=== PATIENT | male | born 1985 | race American Indian/Alaskan Native ===

== ENCOUNTER 2019-05-06 11:35 | Emergency (ER) | payer SELFPAY ==
[2019-05-06] MEDS ORDERED: SODIUM CHLORIDE 0.9% 1000 ML 1,000 ML IV ONE ×2 (11:53→14:03)
--- NOTE | 2019-05-06 11:53 | Event Note ---
ED Screening Note ED Screening Note: N/V/D 2 DAYS LAST TIME URINATED THIS AM PMH NONE RX NONE PSH APPY NO ONE ELSE IN HOME ILL [id number] This initial assessment/diagnostic orders/clinical plan/treatment(s) is/are subject to change based on patients health status, clinical progression and re- assessment by fellow clinical providers in the ED. Further treatment and workup at subsequent clinical providers discretion. Patient/guardian urged not to elope from the ED as their condition may be serious if not clinically assessed and managed. Initial orders include: LABS FLUIDS
[2019-05-06 13:23] LABS: Hematocrit 55.8 % (35.5-45.6); Hemoglobin 18.7 gm/dl (11.8-15.2); Mean Corpuscular HGB Conc 34 % (32-34); Mean Corpuscular Volume 90 fl (84-94); Platelet Count 432 K/mm3 (140-440); Red Blood Count 6.23 M/mm3 (3.65-5.03); Red Cell Distribution Width 14.7 % (13.2-15.2)
[2019-05-06] MEDS ORDERED: MORPHINE 4 MG/1 ML INJ IV ONE (13:23)
[2019-05-06] MEDS ORDERED: ONDANSETRON 4 MG/2 ML INJ IV ONE (13:23)
[2019-05-06] MEDS ORDERED: MORPHINE 4 MG/1 ML INJ ONE (13:25)
[2019-05-06 13:47] LABS: Alanine Aminotransferase 10 units/L (7-56); Albumin 4.5 g/dL (3.9-5); BUN/Creatinine Ratio 9; Blood Urea Nitrogen 17 mg/dL (9-20); Calcium 9.7 mg/dL (8.4-10.2); Hemolysis Index 11
[2019-05-06 13:59] LABS: Bilirubin,Direct < 0.2 mg/dL (0-0.2)
[2019-05-06 14:00] VITALS: BP 100/71
[2019-05-06 14:15] LABS: Band Neutrophils # (Manual) 4.4 K/mm3; Basophils % (Manual) 0 % (0.0-1.8); Ovalocytes Few; Total Cells Counted 100
[2019-05-06 14:16] LABS: Burr Cells Few; Platelet Estimate Consistent w Auto; Poikilocytosis Few
--- NOTE | 2019-05-06 14:22 | Emergency Department Report ---
ED Abdominal Pain HPI - General Chief Complaint: Abdominal Pain Stated Complaint: VOMITING/DIARRHEA Time Seen by Provider: 05/06/19 11:52 Source: patient Mode of arrival: Ambulatory Limitations: No Limitations - History of Present Illness Initial Comments: This is a 33-year-old male nontoxic, well nourished in appearance, no acute signs of distress presents to the ED with c/o of nausea and vomiting and abdominal pain 1 day. Patient describes vomiting as food content and yellow gastric acid. Patient describes abdominal pain as cramping and aching with level of 8/10 diffuse. Patient denies chest pain, short of breath, fever, chills, headache, stiff neck, numbness or tingling. Patient denies any diarrhea or constipation. Patient denies any recent travels. Patient denies any allergies. MD Complaint: abdominal pain -: days(s) (1) Location: diffuse Radiation: none Migration to: no migration Severity: mild Severity scale (0 -10): 8 Quality: cramping, aching Consistency: constant Improves With: nothing Worsens With: nothing Associated Symptoms: nausea, vomiting. denies: diarrhea, fever, chills, constipation, dysuria, hematemesis, hematochezia, melena, hematuria, anorexia, syncope - Related Data Previous Rx's Medication Instructions Recorded Last Taken Type Dicyclomine [Bentyl] 20 mg PO QID #10 tablet 01/17/19 Unknown Rx Ondansetron [Zofran Odt] 4 mg PO Q8HR #10 tab.rapdis 01/17/19 Unknown Rx Pantoprazole [Protonix] 40 mg PO QDAY #30 tablet 01/17/19 Unknown Rx traMADoL [Ultram] 50 mg PO Q6HR PRN #12 tablet 01/17/19 Unknown Rx Acetaminophen/Codeine [Tylenol 1 tab PO Q6H PRN #12 tab 05/06/19 Unknown Rx /Codeine # 3 tab] Ondansetron [Zofran Odt] 4 mg PO Q8HR PRN #20 tab.rapdis 05/06/19 Unknown Rx Allergies Allergy/AdvReac Type Severity Reaction Status Date / Time No Known Allergies Allergy Unverified 10/11/16 21:20 ED Review of Systems ROS: Stated complaint: VOMITING/DIARRHEA Other details as noted in HPI Constitutional: denies: chills, fever Eyes: denies: eye pain, eye discharge, vision change ENT: denies: ear pain, throat pain Respiratory: denies: cough, shortness of breath, wheezing Cardiovascular: denies: chest pain, palpitations Endocrine: no symptoms reported Gastrointestinal: abdominal pain, nausea, vomiting. denies: diarrhea Genitourinary: denies: urgency, dysuria Musculoskeletal: denies: back pain, joint swelling, arthralgia Skin: denies: rash, lesions Neurological: denies: headache, weakness, paresthesias Psychiatric: denies: anxiety, depression Hematological/Lymphatic: denies: easy bleeding, easy bruising ED Past Medical Hx - Past Medical History Hx Hypertension: No Hx Congestive Heart Failure: No Hx Diabetes: No Hx GERD: Yes Hx Renal Disease: No Hx Seizures: No Hx Asthma: No Hx COPD: No - Surgical History Hx Appendectomy: Yes - Social History Smoking Status: Never Smoker Substance Use Type: None - Medications Home Medications: Home Medications Medication Instructions Recorded Confirmed Last Taken Type Dicyclomine [Bentyl] 20 mg PO QID #10 tablet 01/17/19 Unknown Rx Ondansetron [Zofran Odt] 4 mg PO Q8HR #10 tab.rapdis 01/17/19 Unknown Rx Pantoprazole [Protonix] 40 mg PO QDAY #30 tablet 01/17/19 Unknown Rx traMADoL [Ultram] 50 mg PO Q6HR PRN #12 tablet 01/17/19 Unknown Rx Acetaminophen/Codeine [Tylenol 1 tab PO Q6H PRN #12 tab 05/06/19 Unknown Rx /Codeine # 3 tab] Ondansetron [Zofran Odt] 4 mg PO Q8HR PRN #20 tab.rapdis 05/06/19 Unknown Rx ED Physical Exam - General Limitations: No Limitations General appearance: alert, in no apparent distress - Head Head exam: Present: atraumatic, normocephalic - Neck Neck exam: Present: normal inspection, full ROM. Absent: tenderness, meningismus, lymphadenopathy - Respiratory Respiratory exam: Present: normal lung sounds bilaterally. Absent: respiratory distress, wheezes, rales, rhonchi, stridor, chest wall tenderness, accessory muscle use, decreased breath sounds, prolonged expiratory - Cardiovascular Cardiovascular Exam: Present: regular rate, normal rhythm, tachycardia, normal heart sounds. Absent: irregular rhythm, systolic murmur, diastolic murmur, rubs, gallop - GI/Abdominal GI/Abdominal exam: Present: soft, tenderness (diffuse), normal bowel sounds. Absent: distended, guarding, rebound, rigid, diminished bowel sounds - Extremities Exam Extremities exam: Present: normal inspection, full ROM - Back Exam Back exam: Present: normal inspection, full ROM. Absent: tenderness, CVA tenderness (R), CVA tenderness (L), muscle spasm, paraspinal tenderness, vertebral tenderness, rash noted - Neurological Exam Neurological exam: Present: alert, oriented X3, normal gait - Psychiatric Psychiatric exam: Present: normal affect, normal mood - Skin Skin exam: Present: warm, dry, intact, normal color. Absent: rash ED Course Vital Signs 05/06/19 05/06/19 05/06/19 11:42 11:52 13:59 Temperature 98.4 F 98.6 F 99.0 F Pulse Rate 141 H 130 H 99 H Respiratory 19 19 18 Rate Blood Pressure 108/68 108/68 Blood Pressure 100/71 [Left] O2 Sat by Pulse 94 96 98 Oximetry - Reevaluation(s) Reevaluation #1: 05/06/19 14:21 Patient is speaking in full sentences with no signs of distress noted. ED Medical Decision Making - Lab Data Result diagrams: 05/06/19 12:39 05/06/19 12:39 - Medical Decision Making This is a 33-year-old male that presents with abdominal pain and n/v. Patient is stable and was examined by me. Labs obtained. UA obtained. CT of abdomen obtained and dictated by the radiologist. Patient is notified of the report with no questions noted by the patient. Vital signs are stable prior to discharge. Patient received medical treatment in the ED which patient stated symptoms has resovled and subsided. Was instructed note to operate any machinery due to possible drowsiness and stated someone will drive the patient home. A by mouth c hallenge has been obtained and patient tolerated well with no nausea vomiting. Patient was also instructed to Follow-up with a primary care doctor in 3-5 days or if symptoms worsen and continue return to emergency room as soon as possible. At time of discharge, the patient does not seem toxic or ill in appearance. No acute signs of distress noted. Patient agrees to discharge treatment plan of care. No further questions noted by the patient. Critical care attestation.: If time is entered above; I have spent that time in minutes in the direct care of this critically ill patient, excluding procedure time. ED Disposition Clinical Impression: Abdominal pain Qualifiers: Abdominal location: generalized Qualified Code(s): R10.84 - Generalized abdominal pain Nausea & vomiting Qualifiers: Vomiting type: unspecified Vomiting Intractability: non-intractable Qualified Code(s): R11.2 - Nausea with vomiting, unspecified Disposition: DC- TO HOME OR SELFCARE Is pt being admited?: No Does the pt Need Aspirin: No Condition: Stable Instructions: Acute Abdominal Pain (ED), Acute Nausea and Vomiting (ED), Acetaminophen/Codeine (By mouth) Additional Instructions: Follow-up with a primary care and risk compliance analyst doctor in 3-5 days or if symptoms worsen and continue return to emergency room as soon as possible. Do not operate any machinery while taking Tylenol with codeine as this may cause drowsiness. Prescriptions: Acetaminophen/Codeine [Tylenol /Codeine # 3 tab] 1 tab PO Q6H PRN #12 tab PRN Reason: Pain , Severe (7-10) Ondansetron [Zofran Odt] 4 mg PO Q8HR PRN #20 tab.rapdis PRN Reason: Nausea Referrals: PRIMARY CAREMD [Primary Care Provider] - 3-5 Days MICKIE CARRILLO MD [Staff Physician] - 3-[address] [facility] [Outside] - 3-5 Days [facility] [Provider Group] - 3-5 Days Forms: Work/School Release Form(ED)
[2019-05-06 14:35] LABS: Bacteria,Urine 1+ /HPF (Negative); Bilirubin,Urine MOD (Negative); Blood,Urine NEG (Negative); Color,Urine Amber (Yellow); Hyaline Casts,Urine 42 /LPF; Mucus,Urine 3+ /HPF; Urobilinogen,Urine < 2.0 mg/dL (<2.0)
[2019-05-06 14:58] LABS: Ictotest,Urine Negative (Negative)
--- NOTE | 2019-05-06 15:05 | Cat Scan Report ---
CT ABDOMEN AND PELVIS WITH CONTRAST HISTORY: abd pain with n/v COMPARISON: 01/17/2019 TECHNIQUE: Axial CT images were obtained through the abdomen and pelvis after 100 cc of Omnipaque 300 intravenously. Sagittal and coronal reformatted images. All CT scans at this location are performed using CT dose reduction for ALARA by means of automated exposure control. FINDINGS: CT ABDOMEN: Lung Bases: Clear. Liver: No significant abnormality. Biliary: No significant abnormality. Spleen: No significant abnormality. Unenlarged. Pancreas: No significant abnormality. Adrenals: No significant abnormality. Kidneys: No significant abnormality. Lymphatics: No lymphadenopathy. Vasculature: No significant abnormality. Bowel/Peritoneum: Mild irregular thickening of the gastric antrum is again seen although inflammatory changes along the greater curvature of the stomach have resolved. There is no evidence for obstructi on, free air or abscess. The remaining bowel loops are unremarkable. Normal appendix. CT PELVIS: : No significant abnormality. Osseous Structures: No significant abnormality. Additional Findings: None IMPRESSION: Antral gastritis is suspected. See above. Consider further evaluation with endoscopy. Signer Name: Eleazar Ramos Jr, MD Signed: 05/06/2019 3:00 PM Workstation Name: [id number]
== END 2019-05-06 16:30 | disposition home or self-care (01) ==
LOC: ED 11:35
DX: R11.2 Nausea with vomiting, unspecified (principal); R10.9 Unspecified abdominal pain; K21.9 Gastro-esophageal reflux disease without esophagitis; Z79.899 Other long term (current) drug therapy
CPT/HCPCS: 36415; 74177; 80048; 80076; 81001; 83690; 85007; 85025; 87086; 96361; 96374; 96375; 99284; J2270; J2405; J7030; Q9967

== ENCOUNTER 2019-06-09 23:36 | Emergency (ER) | payer SELFPAY ==
[2019-06-09 23:45] VITALS: BP 126/83
--- NOTE | 2019-06-10 01:51 | Emergency Department Report ---
Chief Complaint: Dental/Oral Stated Complaint: TOOTHACHE/ABD PAIN Time Seen by Provider: 06/10/19 01:30 - HPI History of Present Illness: Patient is a 33-year-old male presents the emergency room with complaints of dental pain that began 2 days ago. He states he has upper and lower dental pain. He states he has it has been years since he has seen a dentist. He denies any nausea, vomiting, diarrhea, fever, difficulty swallowing, facial swelling, any other symptoms. Patient does not report anything about abdominal pain. He denies any past medical history. He denies any allergies to medications. He has not been taking anything for his dental pain. vitals are normal on exam: non toxic appearing, no acute distress atraumatic, normal cephalic normal appearance of eyes, EOMI cracked tooth present on the left lower jaw, cracked tooth with small reminant o n the right lower jaw, no induration or edema of the gum or jaw line, no facial edema, uvula is midline, no uvular edema, no uvular deviation regular heart rate and rhythm, no murmurs, no gallops or rubs breath sounds are clear bilaterally, no w/r/r no abd TTP, no guarding, no rebound, no peritoneal signs, normal bowel sounds, no mcburneys point ttp or murphys sign A&Ox4 skin is warm, dry intact pt is presenting with dental caries/cracked teeth no signs of abscess or facial cellulitis Medical screening examination performed and there is no threat to life or limb at this time Patient will be referred to a dentist for further evaluation and management Discussed strict return precautions with the patient - Exam Vital Signs: Vital Signs 06/09/19 23:41 Temperature 98.5 F Pulse Rate 80 Respiratory 18 Rate Blood Pressure 126/83 O2 Sat by Pulse 98 Oximetry MSE screening note: Focused history and physical exam performed. ED Disposition for MSE Clinical Impression: Dental caries, Cracked tooth, Pain, dental Disposition: Z-07 MED SCREENING EXAM-LEFT Is pt being admited?: No Does the pt Need Aspirin: No Condition: Stable Instructions: Dental Caries (ED) Additional Instructions: May alternate Tylenol and then ibuprofen every 6 hours as needed for dental pain. May use a dental putty [id number]. Follow-up with a dentist in the next 2 to 3 days. It is very important that you follow-up with a dentist for further evaluation and management. Return to the emergency room for any new or worsening symptoms including but not limited to fever, vomiting, unable to swallow, facial swelling, etc. Referrals: [facility] [Outside] - 2-3 Days Forms: Work/School Release Form(ED) Time of Disposition: 01:51 Print Language: CAMEROONIAN
== END 2019-06-10 02:14 | disposition left against medical advice (07) ==
LOC: ED 23:36
DX: K02.9 Dental caries, unspecified (principal); K03.81 Cracked tooth
CPT/HCPCS: 99281

== ENCOUNTER 2019-06-23 13:00 | Emergency (ER) | payer SELFPAY ==
[2019-06-23 14:40] VITALS: BP 121/85
--- NOTE | 2019-06-23 14:41 | Event Note ---
ED Screening Note Date of service: 06/23/19 Time: 14:39 ED Screening Note: 33 y o male presents with vomitting continuosly x yesterday stated today he notice brownish blood in his vomitting denies f/c/ admits generalized abd pain This initial assessment/diagnostic orders/clinical plan/treatment(s) is/are subject to change based on patients health status, clinical progression and re- assessment by fellow clinical providers in the ED. Further treatment and workup at subsequent clinical providers discretion. Patient/guardian urged not to elope from the ED as their condition may be serious if not clinically assessed and managed. Initial orders include: labs
[2019-06-23 15:38] LABS: Basophils # (Auto) 0.1 K/mm3 (0.0-0.1); Basophils % (Auto) 0.7 % (0.0-1.8); Eosinophils # (Auto) 0.1 K/mm3 (0.0-0.4); Eosinophils % (Auto) 0.5 % (0.0-4.3); Hematocrit 45.3 % (35.5-45.6); Hemoglobin 15.5 gm/dl (11.8-15.2); Lymphocytes # (Auto) 3.8 K/mm3 (1.2-5.4); Lymphocytes % (Auto) 23.3 % (13.4-35.0); Mean Corpuscular HGB Conc 34 % (32-34); Mean Corpuscular Volume 91 fl (84-94); Monocytes # (Auto) 1.5 K/mm3 (0.0-0.8); Monocytes % (Auto) 9.2 % (0.0-7.3); Platelet Count 401 K/mm3 (140-440); Red Blood Count 4.99 M/mm3 (3.65-5.03); Red Cell Distribution Width 13.7 % (13.2-15.2)
[2019-06-23 15:39] LABS: Alanine Aminotransferase 11 units/L (7-56); Albumin 4.4 g/dL (3.9-5); BUN/Creatinine Ratio 29; Blood Urea Nitrogen 29 mg/dL (9-20); Calcium 9.6 mg/dL (8.4-10.2); Hemolysis Index 18
[2019-06-23] MEDS ORDERED: ALUM-MAG HYDROXIDE-SIMETHICONE 200-200-20MG/5ML ORAL LIQD 30 ML PO ONE (17:16)
[2019-06-23] MEDS ORDERED: FAMOTIDINE 20 MG TAB PO ONE (17:16)
[2019-06-23] MEDS ORDERED: SODIUM CHLORIDE 0.9% 1000 ML 1,000 ML IV ONE (17:16)
[2019-06-23] MEDS ORDERED: LIDOCAINE VISCOUS 2% 15 ML ORAL LIQD PO ONE (17:17)
--- NOTE | 2019-06-23 17:17 | Emergency Department Report ---
ED Abdominal Pain HPI - General Chief Complaint: Nausea/Vomiting/Diarrhea Stated Complaint: ABD PAIN Time Seen by Provider: 06/23/19 17:16 Source: patient Mode of arrival: Ambulatory Limitations: No Limitations - History of Present Illness Initial Comments: Patient is a 36-year-old -[place] male who comes to the ER complaining of epigastric pain associated with some nausea and vomiting. He is not vomiting in the ER. He is not tachycardic nor hypotensive. He has no fever. Patient states that he has been having stomach pain off and on since he had his appendectomy many years ago. In review of the EMR he has been seen here numerous times for gastritis, GERD and has been recommended to have an EGD. However, the patient does not follow-up. Given his complaints today I am concerned for gastritis and need to rule out a perforation. I had a long discussion with the patient about his need to see the GI doctor to get an endoscopy. He verbalizes understanding. MD Complaint: abdominal pain -: Gradual, days(s) Location: epigastric Radiation: none Severity: mild Consistency: constant Improves With: nothing Worsens With: nothing Associated Symptoms: denies other symptoms, nausea, vomiting. denies: diarrhea, fever, chills, constipation, dysuria, hematemesis, hematochezia, melena, hematuria, anorexia, syncope - Related Data Previous Rx's Medication Instructions Recorded Last Taken Type Ondansetron [Zofran Odt] 4 mg PO Q8HR PRN #10 tab.rapdis 06/23/19 Unknown Rx Pantoprazole [Protonix] 40 mg PO QDAY #30 tablet 06/23/19 Unknown Rx Allergies Allergy/AdvReac Type Severity Reaction Status Date / Time No Known Allergies Allergy Unverified 10/11/16 21:20 ED Review of Systems ROS: Stated complaint: VOMITING BLOOD/ABD PAIN Other details as noted in HPI Comment: All other systems reviewed and negative ED Past Medical Hx - Past Medical History Previous Medical History?: Yes Hx Hypertension: No Hx Congestive Heart Failure: No Hx Diabetes: No Hx GERD: Yes Hx Renal Disease: No Hx Seizures: No Hx Asthma: No Hx COPD: No - Surgical History Past Surgical History?: Yes Hx Appendectomy: Yes - Family History Family history: no significant - Social History Smoking Status: Never Smoker Substance Use Type: None - Medications Home Medications: Home Medications Medication Instructions Recorded Confirmed Last Taken Type Ondansetron [Zofran Odt] 4 mg PO Q8HR PRN #10 tab.rapdis 06/23/19 Unknown Rx Pantoprazole [Protonix] 40 mg PO QDAY #30 tablet 06/23/19 Unknown Rx ED Physical Exam - General Limitations: No Limitations General appearance: alert, in no apparent distress - Head Head exam: Present: atraumatic, normocephalic - Eye Eye exam: Present: normal appearance - ENT ENT exam: Present: mucous membranes moist - Neck Neck exam: Present: normal inspection - Respiratory Respiratory exam: Present: normal lung sounds bilaterally. Absent: respiratory distress - Cardiovascular Cardiovascular Exam: Present: regular rate, normal rhythm. Absent: systolic murmur, diastolic murmur, rubs, gallop - GI/Abdominal GI/Abdominal exam: Present: soft, normal bowel sounds - Rectal Rectal exam: Present: deferred - Extremities Exam Extremities exam: Present: normal inspection - Back Exam Back exam: Present: normal inspection - Neurological Exam Neurological exam: Present: alert, oriented X3 - Psychiatric Psychiatric exam: Present: normal affect, normal mood - Skin Skin exam: Present: warm, dry, intact, normal color. Absent: rash ED Course Vital Signs 06/23/19 06/23/19 14:39 19:53 Temperature 98.5 F Pulse Rate 76 84 Respiratory 18 18 Rate Blood Pressure 121/85 O2 Sat by Pulse 100 98 Oximetry ED Medical Decision Making - Lab Data Result diagrams: 06/23/19 15:08 06/23/19 15:08 - Radiology Data Radiology results: report reviewed, image reviewed - Medical Decision Making Lab Results 06/23/19 06/23/19 06/23/19 Range/Units 15:08 15:08 Unknown WBC 16.5 H (4.5-11.0) K/mm3 RBC 4.99 (3.65-5.03) M/mm3 Hgb 15.5 H (11.8-15.2) gm/dl Hct 45.3 (35.5-45.6) % MCV 91 (84-94) fl MCH 31 (28-32) pg MCHC 34 (32-34) % RDW 13.7 (13.2-15.2) % Plt Count 401 (140-440) K/mm3 Lymph % (Auto) 23.3 (13.4-35.0) % Yancey % (Auto) 9.2 H (0.0-7.3) % Eos % (Auto) 0.5 (0.0-4.3) % Baso % (Auto) 0.7 (0.0-1.8) % Lymph # 3.8 (1.2-5.4) K/mm3 Yancey # 1.5 H (0.0-0.8) K/mm3 Eos # 0.1 (0.0-0.4) K/mm3 Baso # 0.1 (0.0-0.1) K/mm3 Seg Neutrophils % 66.3 (40.0-70.0) % Seg Neutrophils # 11.0 H (1.8-7.7) K/mm3 Sodium 137 (137-145) mmol/L Potassium 3.9 (3.6-5.0) mmol/L Chloride 93.9 L (98-107) mmol/L Carbon Dioxide 25 (22-30) mmol/L Anion Gap 22 mmol/L BUN 29 H (9-20) mg/dL Creatinine 1.0 (0.8-1.5) mg/dL Estimated GFR > 60 ml/min BUN/Creatinine Ratio 29 % Glucose 102 H (75-100) mg/dL Calcium 9.6 (8.4-10.2) mg/dL Total Bilirubin 0.60 (0.1-1.2) mg/dL AST 13 (5-40) units/L ALT 11 (7-56) units/L Alkaline Phosphatase 62 (35-129) units/L Total Protein 7.8 (6.3-8.2) g/dL Albumin 4.4 (3.9-5) g/dL Albumin/Globulin Ratio 1.3 % Lipase 15 (13-60) units/L Urine Color Yellow (Yellow) Urine Turbidity Clear (Clear) Urine pH 7.0 (5.0-7.0) Ur Specific [place] 1.029 (1.003-1.030) Urine Protein <15 mg/dl (Negative) mg/dL Urine Glucose (UA) Neg (Negative) mg/dL Urine Ketones Tr (Negative) mg/dL Urine Blood Neg (Negative) Urine Nitrite Neg (Negative) Urine Bilirubin Neg (Negative) Urine Urobilinogen 2.0 (<2.0) mg/dL Ur Leukocyte Esterase Neg (Negative) Urine WBC (Auto) 1.0 (0.0-6.0) /HPF Urine RBC (Auto) 2.0 (0.0-6.0) /HPF U Epithel Cells (Auto) < 1.0 (0-13.0) /HPF Urine Mucus 1+ /HPF Vital Signs 06/23/19 14:39 Temperature 98.5 F Pulse Rate 76 Respiratory 18 Rate Blood Pressure 121/85 O2 Sat by Pulse 100 Oximetry LABS NOTED UA NOTED EMR REVIEWED- HERE OFTEN; DOES NOT FOLLOW UP DENIES RX AT HOME NS/ZOFRAN/GI COCKTAIL AND PEPCID WITH RELIEF X-ray with no free air under the diaphragm. On reevaluation at 1830 patient is stating that his pain has been relieved. He is taking p.o. He is smiling and interactive. Will DC home with GI follow-up. Patient going home with a prescription for Protonix and good Rx coupon cards. On discharge patient's vital signs are stable. He reports feeling better. He is ambulatory nontoxic and taking p.o. - Differential Diagnosis GASTRITIS/GASTROENTERITIS/K STONE Critical care attestation.: If time is entered above; I have spent that time in minutes in the direct care of this critically ill patient, excluding procedure time. ED Disposition Clinical Impression: Gastritis Disposition: DC-01 TO HOME OR SELFCARE Is pt being admited?: No Does the pt Need Aspirin: No Condition: Stable Instructions: Gastritis (ED), Diet for Ulcers and Gastritis (ED) Additional Instructions: MEDS ORDERED TODAY FOLLOW UP WITH PCP AND GI MD REFERRAL BELOW YOU ADDITIONAL OUTPT TESTING TO DETERMINE WHY YOU ARE HAVING PAIN STAY WELL HYDRATED WITH WATER BLAND DIET BANANA RICE APPLESAUCE AND TOAST ADVANCE DIET TOLERATED SLOWLY AVOID ALCOHOL AND SPICY FOOD Prescriptions: Pantoprazole [Protonix] 40 mg PO QDAY #30 tablet Ondansetron [Zofran Odt] 4 mg PO Q8HR PRN #10 tab.rapdis PRN Reason: Vomiting Referrals: MICKIE CARRILLO MD [Staff Physician] - 3-5 Days KARLY CAI MD [Staff Physician] - 3-5 Days Time of Disposition: 18:30
[2019-06-23 17:53] LABS: Bilirubin,Urine NEG (Negative); Blood,Urine NEG (Negative); Color,Urine Yellow (Yellow); Mucus,Urine 1+ /HPF; Protein,Urine <15 mg/dL mg/dL (Negative)
[2019-06-23] MEDS ORDERED: metroNIDAZOLE/NS 500 MG/100 ML 500 MG/100 ML BAG IV ONE (18:04)
[2019-06-23] MEDS ORDERED: PANTOPRAZOLE 40 MG INJ IV ONE (18:29)
--- NOTE | 2019-06-23 19:15 | XRay Report ---
ABDOMEN 3 VIEW(S) INDICATION: Possible free air. COMPARISON: CT abdomen and pelvis with contrast from 05/06/2019. FINDINGS: Bowel gas pattern: No significant abnormality. Free air: None seen. Stones: None seen. Chest: No acute findings. Additional Findings: No additional significant findings. IMPRESSION: No distinct pneumoperitoneum or other acute abnormality of the abdomen. Signer Name: Catalino Sarabia MD Signed: 06/23/2019 7:11 PM Workstation Name: [id number]
== END 2019-06-23 19:53 | disposition home or self-care (01) ==
LOC: ED 13:00
DX: K29.70 Gastritis, unspecified, without bleeding (principal); K21.9 Gastro-esophageal reflux disease without esophagitis; Z90.49 Acquired absence of other specified parts of digestive tract; Z79.899 Other long term (current) drug therapy
CPT/HCPCS: 36415; 74022; 80053; 81001; 83690; 85025; 96361; 96365; 96375; 99284; C9113; J7030

== ENCOUNTER 2019-09-30 18:24 | Inpatient (IN) | payer OTHER ==
--- NOTE | 2019-09-30 19:53 | Event Note ---
ED Screening Note ED Screening Note: upper abd pain that began 5 days ago lower back pain +n/v/d for three days no fever no sick contacts no recent travel no recent abx PSHx appendectomy no allergies to meds non smoker non drinker no drug use This initial assessment/diagnostic orders/clinical plan/treatment(s) is/are subject to change based on patients health status, clinical progression and re- assessment by fellow clinical providers in the ED. Further treatment and workup at subsequent clinical providers discretion. Patient/guardian urged not to elope from the ED as their condition may be serious if not clinically assessed and managed. Initial orders include: labs, UA
[2019-09-30 20:27] LABS: Basophils # (Auto) 0.1 K/mm3 (0.0-0.1); Basophils % (Auto) 0.7 % (0.0-1.8); Eosinophils # (Auto) 0.2 K/mm3 (0.0-0.4); Eosinophils % (Auto) 1.6 % (0.0-4.3); Hematocrit 34.9 % (35.5-45.6); Hemoglobin 11.5 gm/dl (11.8-15.2); Lymphocytes # (Auto) 2.4 K/mm3 (1.2-5.4); Lymphocytes % (Auto) 22.9 % (13.4-35.0); Mean Corpuscular HGB Conc 33 % (32-34); Mean Corpuscular Volume 79 fl (84-94); Monocytes # (Auto) 1.1 K/mm3 (0.0-0.8); Monocytes % (Auto) 9.9 % (0.0-7.3); Platelet Count 542 K/mm3 (140-440); Red Blood Count 4.44 M/mm3 (3.65-5.03); Red Cell Distribution Width 15.7 % (13.2-15.2)
[2019-09-30 20:37] LABS: Amorphous Crystals,Urine Few; Bilirubin,Urine NEG (Negative); Blood,Urine NEG (Negative); Color,Urine Yellow (Yellow); Mucus,Urine 3+ /HPF; Protein,Urine <15 mg/dL mg/dL (Negative); Urobilinogen,Urine < 2.0 mg/dL (<2.0)
[2019-09-30 20:56] LABS: Alanine Aminotransferase 12 units/L (7-56); Albumin 4.1 g/dL (3.9-5); BUN/Creatinine Ratio 7; Blood Urea Nitrogen 8 mg/dL (9-20); Calcium 9.5 mg/dL (8.4-10.2); Hemolysis Index 2
[2019-09-30] MEDS ORDERED: ONDANSETRON 4 MG/2 ML INJ IV ONE (21:13)
[2019-09-30] MEDS ORDERED: FAMOTIDINE 20 MG/2 ML INJ IV ONE (21:13)
[2019-09-30] MEDS ORDERED: SODIUM CHLORIDE 0.9% 1000 ML 1,000 ML IV ONE (21:14)
[2019-09-30] MEDS ORDERED: DICYCLOMINE 20 MG/2 ML INJ IM ONE (21:14)
--- NOTE | 2019-09-30 23:07 | Cat Scan Report ---
CT ABDOMEN AND PELVIS WITH IV CONTRAST INDICATION: Pt complains of RIGHT sided abdominal pain.. COMPARISON: None available. TECHNIQUE: Axial CT images were obtained through the abdomen and pelvis after 100 mL IV contrast. All CT scans a t this location are performed using CT dose reduction for ALARA by means of automated exposure contro l. FINDINGS -- ABDOMEN: Lung Bases: No acute abnormality. Liver: Normal. Gallbladder: Normal. Bile Ducts: Normal. Pancreas: Normal. Spleen: Normal. Adrenals: Normal. Right Kidney and Proximal Ureter: Normal. Left Kidney and Proximal Ureter: Normal. Stomach and Bowel: Grossly abnormal with severe mucosal thickening identified involving the distal ga stric antrum/pylorus region as well as the proximal first portion of the duodenum concerning for unde rlying ulcer. There is significant fluid distention of the more proximal stomach concerning for at le ast mild gastric outlet obstruction.. Lymph Nodes: Severe adenopathy within the peripancreatic and hyacinth hepatis regions Aorta: No significant abnormality. IVC: Normal. Additional Findings: None. FINDINGS -- PELVIS: Urinary Bladder and Distal Ureters: Normal. Reproductive Organs: No acute abnormality. Appendix: Normal. Bowel: No acute abnormality. Free Fluid: Small free fluid. Lymph Nodes: No significant adenopathy. Additional Findings: None. Skeletal System: No acute abnormality. IMPRESSION: Severe pylorus/proximal duodenal inflammation concerning for gastric/duodenal ulcer, as above. Severe inflammation extends into the adjacent omentum and mesentery. I do not see significant free air at t his time to definitely suggest perforation but microperforation is difficult to exclude. There are mu ltiple pathologic appearing nodes within the region of the peripancreatic head/hyacinth hepatis region. There is suspicion of mild gastric outlet obstruction. Upper endoscopy is suggested for further evalu ation. Signer Name: Corky Curtis MD Signed: 09/30/2019 11:03 PM Workstation Name: [id number]
--- NOTE | 2019-09-30 23:26 | Emergency Department Report ---
ED Abdominal Pain HPI - General Chief Complaint: Abdominal Pain Stated Complaint: STOMACH PAIN Time Seen by Provider: 09/30/19 19:51 Source: patient Mode of arrival: Ambulatory Limitations: No Limitations - History of Present Illness Initial Comments: Patient is a 34-year-old -English male with no past medical history except a ruptured appendicitis and status post appendectomy who presents to the ED with complaint of acute onset persistent severe epigastric pain that radiates to the periumbilical area and left upper quadrant area for the last 5 days with nausea, vomiting and diarrhea for the last 3 days. Patient states that the pain also radiates to his mid posterior thoracic area. Patient states that he has not been able to keep anything down because of severe pain and nausea and vomiting. Patient denies hematemesis, hematochezia, diarrhea, constipation, dysuria, urinary frequency and urgency, dizziness, syncope, chest pain, shor tness of breath, fever, chills, sore throat or testicular pain, traumatic injury or heavy lifting. MD Complaint: abdominal pain, other (nausea, vomiting and diarrhea) -: Sudden, days(s) (5) Location: periumbilical, LUQ, epigastric Radiation: LUQ, epigastric Migration to: periumbilical Severity: severe Severity scale (0 -10): 7 Quality: cramping, aching, sharp Consistency: constant Improves With: nothing Worsens With: nothing Associated Symptoms: denies other symptoms, nausea, vomiting, diarrhea, anorexia. denies: fever, chills, constipation, dysuria, hematemesis, hematochezia, melena, hematuria - Related Data Previous Rx's Medication Instructions Recorded Last Taken Type Ondansetron [Zofran Odt] 4 mg PO Q8HR PRN #10 tab.rapdis 06/23/19 Unknown Rx Pantoprazole [Protonix] 40 mg PO QDAY #30 tablet 06/23/19 Unknown Rx Allergies Allergy/AdvReac Type Severity Reaction Status Date / Time No Known Allergies Allergy Unverified 10/11/16 21:20 ED Review of Systems ROS: Stated complaint: STOMACH PAIN Other details as noted in HPI Constitutional: denies: chills, fever Eyes: denies: eye pain, eye discharge, vision change ENT: denies: ear pain, throat pain Respiratory: denies: cough, shortness of breath, wheezing Cardiovascular: denies: chest pain, palpitations Endocrine: no symptoms reported Gastrointestinal: abdominal pain, nausea, vomiting, diarrhea Genitourinary: denies: urgency, dysuria Musculoskeletal: denies: back pain, joint swelling, arthralgia Skin: denies: rash, lesions Neurological: denies: headache, weakness, paresthesias Psychiatric: denies: anxiety, depression Hematological/Lymphatic: denies: easy bleeding, easy bruising ED Past Medical Hx - Past Medical History Hx Hypertension: No Hx Congestive Heart Failure: No Hx Diabetes: No Hx GERD: Yes Hx Renal Disease: No Hx Seizures: No Hx Asthma: No Hx COPD: No - Surgical History Hx Appendectomy: Yes - Social History Smoking Status: Never Smoker Substance Use Type: None - Medications Home Medications: Home Medications Medication Instructions Recorded Confirmed Last Taken Type Ondansetron [Zofran Odt] 4 mg PO Q8HR PRN #10 tab.rapdis 06/23/19 Unknown Rx Pantoprazole [Protonix] 40 mg PO QDAY #30 tablet 06/23/19 Unknown Rx ED Physical Exam - General Limitations: No Limitations General appearance: alert, in no apparent distress - Head Head exam: Present: atraumatic, normocephalic, normal inspection - Eye Eye exam: Present: normal appearance, PERRL, EOMI Pupils: Present: normal accommodation, irregular - ENT ENT exam: Present: normal exam, normal orophraynx, mucous membranes moist, TM's normal bilaterally, normal external ear exam - Neck Neck exam: Present: normal inspection, full ROM - Respiratory Respiratory exam: Present: normal lung sounds bilaterally. Absent: respiratory distress, wheezes, rales, rhonchi, chest wall tenderness, accessory muscle use, decreased breath sounds - Cardiovascular Cardiovascular Exam: Present: regular rate, normal rhythm, normal heart sounds. Absent: systolic murmur, diastolic murmur, rubs, gallop - GI/Abdominal GI/Abdominal exam: Present: soft, tenderness (Palpable epigastric and periumbilical abdominal tenderness with guarding.), guarding, normal bowel sounds. Absent: rebound, rigid, hyperactive bowel sounds, hypoactive bowel sounds, organomegaly - Extremities Exam Extremities exam: Present: normal inspection, full ROM, normal capillary refill - Back Exam Back exam: Present: normal inspection, full ROM. Absent: tenderness, CVA tenderness (R), muscle spasm, paraspinal tenderness - Neurological Exam Neurological exam: Present: alert, oriented X3, CN II-XII intact, normal gait, reflexes normal - Psychiatric Psychiatric exam: Present: normal affect, normal mood - Skin Skin exam: Present: warm, dry, intact, normal color. Absent: rash ED Course Vital Signs 09/30/19 09/30/19 18:56 21:35 Temperature 98.9 F Pulse Rate 79 Respiratory 20 18 Rate Blood Pressure 110/80 O2 Sat by Pulse 99 Oximetry - Reevaluation(s) Reevaluation #1: 09/30/19 23:40 I discussed the patient's case with the general surgeon on-call Dr. Rendon who advised that the patient may need to be admitted for observation and repeat labs in the morning for any changes and possibly the GI physician on-call also be involved in his care once the patient is admitted for further evaluation. Dr. Rendon also suggested that if the patient develops intractable nausea and vomiting in the ED then at that point an NG tube may be needed to decompress the stomach. ED Medical Decision Making - Lab Data Result diagrams: 09/30/19 20:15 09/30/19 20:15 - Radiology Data Radiology results: report reviewed, image reviewed Findings [address] [address] Cat Scan Report Signed Patient: ALBA BARBER MR #: [id number] : 1985 Acct:[id number] Age/Sex: 34 / M ADM Date: 09/30/19 Findings [facility] [address] [place] [address] Cat Scan Report Signed Patient: ALBA BARBER MR #: [id number] : 1985 Acct:[id number] Age/Sex: 34 / M ADM Date: 09/30/19 Loc: ED Attending Dr: Ordering Physician: HENRIQUE EWING Date of Service: 09/30/19 Procedure(s): CT abdomen pelvis w con Accession Number(s): [id number] cc: HENRIQUE EWING CT ABDOMEN AND PELVIS WITH IV CONTRAST INDICATION: Pt complains of RIGHT sided abdominal pain.. COMPARISON: None available. TECHNIQUE: Axial CT images were obtained through the abdomen and pelvis after 100 mL IV contrast. All CT scans at this location are performed using CT dose reduction for ALARA by means of automated exposure control. FINDINGS -- ABDOMEN: Lung Bases: No acute abnormality. Liver: Normal. Gallbladder: Normal. Bile Ducts: Normal. Pancreas: Normal. Spleen: Normal. Adrenals: Normal. Right Kidney and Proximal Ureter: Normal. Left Kidney and Proximal Ureter: Normal. Stomach and Bowel: Grossly abnormal with severe mucosal thickening identified involving the distal gastric antrum/pylorus region as well as the proximal first portion of the duodenum concerning for underlying ulcer. There is significant fluid distention of the more proximal stomach concerning for at least mild gastric outlet obstruction.. Lymph Nodes: Severe adenopathy within the peripancreatic and hyacinth hepatis re gions Aorta: No significant abnormality. IVC: Normal. Additional Findings: None. FINDINGS -- PELVIS: Urinary Bladder and Distal Ureters: Normal. Reproductive Organs: No acute abnormality. Appendix: Normal. Bowel: No acute abnormality. Free Fluid: Small free fluid. Lymph Nodes: No significant adenopathy. Additional Findings: None. Skeletal System: No acute abnormality. IMPRESSION: Severe pylorus/proximal duodenal inflammation concerning for gastric/duodenal ulcer, as above. Severe inflammation extends into the adjacent omentum and mesentery. I do not see significant free air at this time to definitely suggest perforation but microperforation is difficult to exclude. There are multiple pathologic appearing nodes within the region of the peripancreatic head/hyacinth hepatis region. There is suspicion of mild gastric outlet obstruction. Upper endoscopy is suggested for further evaluation. Signer Name: Corky Curtis MD Signed: 09/30/2019 11:03 PM Workstation Name: [id number] Transcribed By: Dictated By: Corky Curtis MD Electronically Authenticated By: Corky Curtis MD Signed Date/Time: 09/30/19 5368 DD/ 1899 TD/TT: - Medical Decision Making This is a 34-year-old -English male with no past medical history except a ruptured appendicitis and status post appendectomy who presents to the ED with complaint of acute onset persistent severe epigastric pain that radiates to the periumbilical area and left upper quadrant area for the last 5 days with nausea, vomiting and diarrhea for the last 3 days. Patient states that the pain also radiates to his mid posterior thoracic area. Patient states that he has not been able to keep anything down because of severe pain and nausea and vomi ting. In the ED, patient is alert and oriented x3 and is not in distress but appears to be in pain. The vital signs are stable. Lab test results were reviewed and are all nonactionable. Abdomen pelvis CT scan with contrast showed severe pylorus/proximal duodenal inflammation concerning for gastric/duodenal ulcer, as above. Severe inflammation extends into the adjacent omentum and mesentery. I do not see significant free air at this time to definitely suggest perforation but microperforation is difficult to exclude. There are multiple pathologic appearing nodes within the region of the peripancreatic head/hyacinth hepatis region. There is suspicion of mild gastric outlet obstruction. Upper endoscopy is suggested for further evaluation. I discussed these findings with the ED attending physician Dr. Brantley who advised that the general surgeon on- call Dr. Rendon be paged for further direction on the patient's care. I therefore discussed the patient's case with Dr. Rendon the general surgeon on- call who advised that the patient may need may need to be admitted for observation and that the GI physician on-call being involved as well in his care upon admission for further evaluation of the suspected peptic ulcer disease, and that if the patient develop intractable nausea and vomiting while in the hospital then an NG tube may need to be inserted to decompress the stomach. I therefore discussed the patient case with the hospitalist physician on-call Dr. Avila who admitted the patient to the hospital for observation. - Differential Diagnosis PUD; GERD; Pancreatitis; SBO; Colitis; Cholecystitis Critical care attestation.: If time is entered above; I have spent that time in minutes in the direct care of this critically ill patient, excluding procedure time. ED Disposition Clinical Impression: Abdominal pain in male, Nausea, vomiting and diarrhea, Peptic ulcer disease Disposition: OP ADMIT IP TO THIS HOSP Is pt being admited?: Yes Does the pt Need Aspirin: No Condition: Stable Instructions: Acute Nausea and Vomiting (ED), Abdominal Pain (ED) Referrals: PRIMARY CARE, [Primary Care Provider] - 3-5 Days Time of Disposition: 00:49 Print Language: FILIPINO
[2019-10-01] MEDS: MORPHINE 2 MG/1 ML INJ IV PRN ×4 (02:10→21:28)
[2019-10-01] MEDS: PANTOPRAZOLE 40 MG INJ IV SCH ×4 (02:10→22:00)
[2019-10-01] MEDS: ONDANSETRON 4 MG/2 ML INJ IV PRN ×2 (02:10→08:20)
--- NOTE | 2019-10-01 05:42 | History and Physical Report ---
History of Present Illness Date of examination: 10/01/19 Date of admission: 10/01/19 02:08 Chief complaint: Chief complaint is abdominal pain History of present illness: History of presenting illness, patient is a 34-year-old male who said he has been having periumbilical sharp abdominal pain going on for about 5 days pain is associated with nausea and vomiting and some had stooling. There is no history of fever or chills and no history of shortness of breath chest pain or cough Past History Past Medical History: GERD Past Surgical History: appendectomy Social history: no significant social history Family history: no significant family history Medications and Allergies Allergies Allergy/AdvReac Type Severity Reaction Status Date / Time No Known Allergies Allergy Unverified 10/11/16 21:20 Home Medications Medication Instructions Recorded Confirmed Last Taken Type Ondansetron [Zofran Odt] 4 mg PO Q8HR PRN #10 tab.rapdis 06/23/19 10/01/19 Unknown Rx Pantoprazole [Protonix] 40 mg PO QDAY #30 tablet 06/23/19 10/01/19 Unknown Rx Active Meds: Active Medications Morphine Sulfate (Morphine) 2 mg IV Q3H PRN PRN Reason: Pain, Moderate (4-6) Last Admin: 10/01/19 02:10 Dose: 2 mg Documented by: Ondansetron HCl (Zofran) 4 mg IV Q6H PRN PRN Reason: Nausea And Vomiting Last Admin: 10/01/19 02:10 Dose: 4 mg Documented by: Pantoprazole Sodium (Protonix) 40 mg IV BID LILLY Last Admin: 10/01/19 02:10 Dose: 40 mg Documented by: Review of Systems Constitutional: no fever, no chills, no sweats, no night sweats, no anorexia, no fatigue, no weakness, no malaise, no lethargy, no poor appetite Eyes: bilateral: other (NO BILATERAL EYE SYMPTOMS) Ears, nose, mouth and throat: no ear pain, no ear discharge, no tinnitis, no d ecreased hearing, no nose pain, no nasal congestion, no nasal discharge, no sinus pressure, no sinus pain, no epistaxis, no bleeding gums, no dental pain, no mouth pain, no dysphagia, no hoarseness, no sore throat, no headache, no vertigo Cardiovascular: no chest pain, no palpitations, no syncope Respiratory: no cough, no shortness of breath, no congestion Gastrointestinal: abdominal pain, nausea, vomiting, constipation, no diarrhea, no change in bowel habits, no hematemesis, no coffee ground emesis, no melena, no hematochezia, no loss of appetite, no early satiety, no heartburn, no indigestion, no belching, no excessive gas, no jaundice, no dyspepsia/bloating, no early satiety Genitourinary Male: no dysuria, no hematuria, no flank pain, no nocturia Rectal: no pain, no incontinence, no itching Musculoskeletal: no neck stiffness, no neck pain, no shooting leg pain, no muscle cramps, no myalgias Integumentary: no rash, no pruritis, no redness, no sores, no wounds, no jaundice, no boils, no lesions, no darkening of skin, no depigmentation, no acne, no dryness, no brittle nails, no striae, no hirsutism, no foot/leg ulcers Neurological: no head injury, no transient paralysis, no paralysis, no weakness, no parathesias, no numbness, no tingling, no headaches, no migraines, no convulsions, no change in speech, no confusion, no sensory deficit, no double vision, no loss of vision Psychiatric: no anxiety, no memory loss, no change in sleep habits, no sleep disturbances, no hypersomnia, no change in appetite, no change in libido, no paranoia, no depression, no anhedonia, no anxiety attacks, no confusion, no irritability Endocrine: no cold intolerance, no heat intolerance, no polyphagia, no polydipsia, no polyuria, no nocturia, no high blood sugars, no low blood sugars Hematologic/Lymphatic: no easy bruising, no easy bleeding, no lymphadenopathy Exam - Constitutional Vitals: Temp Pulse Resp BP Pulse Ox 98.3 F 58 L 17 115/79 100 10/01/19 04:01 10/01/19 04:01 10/01/19 03:32 10/01/19 03:32 10/01/19 03:32 General appearance: Present: mild distress - EENT Eyes: Present: PERRL, EOM intact ENT: hearing intact, clear oral mucosa, no oropharyngeal erythema - Neck Neck: Present: supple, normal ROM - Respiratory Respiratory effort: normal - Cardiovascular Rhythm: regular Heart Sounds: Present: S1 & S2. Absent: systolic murmur, diastolic murmur, click - Extremities Extremities: no ischemia, No edema Peripheral Pulses: within normal limits - Abdominal General gastrointestinal: Present: soft, tender, non-distended, normal bowel sounds. Absent: non-tender, distended, rigid, hypoactive bowel sounds, absent bowel sounds, hepatomegaly, splenomegaly, mass, hernia Male genitourinary: Present: deferred - Rectal Rectal Exam: deferred - Integumentary Integumentary: Present: clear, warm, dry. Absent: erythema, jaundice, rash, clammy, pale - Musculoskeletal Musculoskeletal: strength equal bilaterally - Psychiatric Psychiatric: appropriate mood/affect Results - Labs CBC & Chem 7: 09/30/19 20:15 09/30/19 20:15 Labs: Laboratory Last Values WBC 10.7 K/mm3 (4.5-11.0) 09/30/19 20:15 RBC 4.44 M/mm3 (3.65-5.03) 09/30/19 20:15 Hgb 11.5 gm/dl (11.8-15.2) L 09/30/19 20:15 Hct 34.9 % (35.5-45.6) L 09/30/19 20:15 MCV 79 fl (84-94) L 09/30/19 20:15 MCH 26 pg (28-32) L 09/30/19 20:15 MCHC 33 % (32-34) 09/30/19 20:15 RDW 15.7 % (13.2-15.2) H 09/30/19 20:15 Plt Count 542 K/mm3 (140-440) H 09/30/19 20:15 Lymph % (Auto) 22.9 % (13.4-35.0) 09/30/19 20:15 [place] % (Auto) 9.9 % (0.0-7.3) H 09/30/19 20:15 Eos % (Auto) 1.6 % (0.0-4.3) 09/30/19 20:15 Baso % (Auto) 0.7 % (0.0-1.8) 09/30/19 20:15 Lymph # 2.4 K/mm3 (1.2-5.4) 09/30/19 20:15 [place] # 1.1 K/mm3 (0.0-0.8) H 09/30/19 20:15 Eos # 0.2 K/mm3 (0.0-0.4) 09/30/19 20:15 Baso # 0.1 K/mm3 (0.0-0.1) 09/30/19 20:15 Seg Neutrophils % 64.9 % (40.0-70.0) 09/30/19 20:15 Seg Neutrophils # 7.0 K/mm3 (1.8-7.7) 09/30/19 20:15 Sodium 140 mmol/L (137-145) 09/30/19 20:15 Potassium 4.1 mmol/L (3.6-5.0) 09/30/19 20:15 Chloride 100.8 mmol/L (98-107) 09/30/19 20:15 Carbon Dioxide 26 mmol/L (22-30) 09/30/19 20:15 Anion Gap 17 mmol/L 09/30/19 20:15 BUN 8 mg/dL (9-20) L 09/30/19 20:15 Creatinine 1.2 mg/dL (0.8-1.5) 09/30/19 20:15 Estimated GFR > 60 ml/min 09/30/19 20:15 BUN/Creatinine Ratio 7 % 09/30/19 20:15 Glucose 94 mg/dL (75-100) 09/30/19 20:15 Calcium 9.5 mg/dL (8.4-10.2) 09/30/19 20:15 Total Bilirubin 0.30 mg/dL (0.1-1.2) 09/30/19 20:15 AST 14 units/L (5-40) 09/30/19 20:15 ALT 12 units/L (7-56) 09/30/19 20:15 Alkaline Phosphatase 65 units/L (35-129) 09/30/19 20:15 Total Protein 7.2 g/dL (6.3-8.2) 09/30/19 20:15 Albumin 4.1 g/dL (3.9-5) 09/30/19 20:15 Albumin/Globulin Ratio 1.3 % 09/30/19 20:15 Lipase 22 units/L (13-60) 09/30/19 20:15 Urine Color Yellow (Yellow) 09/30/19 Unknown Urine Turbidity Cloudy (Clear) 09/30/19 Unknown Urine pH 7.0 (5.0-7.0) 09/30/19 Unknown Ur Specific [place] 1.021 (1.003-1.030) 09/30/19 Unknown Urine Protein <15 mg/dl mg/dL (Negative) 09/30/19 Unknown Urine Glucose (UA) Neg mg/dL (Negative) 09/30/19 Unknown Urine Ketones Neg mg/dL (Negative) 09/30/19 Unknown Urine Blood Neg (Negative) 09/30/19 Unknown Urine Nitrite Neg (Negative) 09/30/19 Unknown Urine Bilirubin Neg (Negative) 09/30/19 Unknown Urine Urobilinogen < 2.0 mg/dL (<2.0) 09/30/19 Unknown Ur Leukocyte Esterase Neg (Negative) 09/30/19 Unknown Urine WBC (Auto) 1.0 /HPF (0.0-6.0) 09/30/19 Unknown Urine RBC (Auto) 3.0 /HPF (0.0-6.0) 09/30/19 Unknown Amorphous Crystals Few 09/30/19 Unknown Urine Mucus 3+ /HPF 09/30/19 Unknown Cohen/IV: Voiding Method Toilet IV Catheter Type [Left Peripheral IV Antecubital] Assessment and Plan - Patient Problems (1) Abdominal pain in male Current Visit: Yes Status: Acute Plan to address problem: 1. IV morphine 2 mg every 3 hours as needed for pain 2. I.V Zofran 4 mg every 8 hours as needed for nausea and vomiting (2) Peptic ulcer disease Current Visit: Yes Status: Acute Plan to address problem: 1. IV Protonix 40 mg every 12 hours 2. GI consult with [facility] for evaluation of peptic ulcer (3) Gastric outlet obstruction Current Visit: Yes Status: Acute Plan to address problem: Surgical consult with Dr. Rendon for management of gastric outlet obstruction
--- NOTE | 2019-10-01 08:06 | Gastroenterology Consultation ---
History of Present Illness - Reason for Consult Consult date: 10/01/19 Abdominal pain Requesting physician: PORFIRIO MARIE - History of Present Illness This is a pleasant 34-year-old male who presents with nearly a week of abdominal pain. He reports severe, sharp, upper abdominal pain associate with nausea and episodes of vomiting. Nonradiating. Constant. Worse with eating or palpation better with nothing. Worsening. Denies NSAIDs, alcohol abuse, etc. No personal or family history of peptic ulcer disease. Past Medical History: GERD Past Surgical History: appendectomy Social history: no significant social history Family history: no significant family history Obtained/updated/reviewed patient's current medications Past History Past Medical History: GERD Past Surgical History: appendectomy Social history: no significant social history Family history: no significant family history Medications and Allergies Allergies Allergy/AdvReac Type Severity Reaction Status Date / Time No Known Allergies Allergy Unverified 10/11/16 21:20 Home Medications Medication Instructions Recorded Confirmed Last Taken Type Ondansetron [Zofran Odt] 4 mg PO Q8HR PRN #10 tab.rapdis 06/23/19 10/01/19 Unknown Rx Pantoprazole [Protonix] 40 mg PO QDAY #30 tablet 06/23/19 10/01/19 Unknown Rx Active Meds: Active Medications Morphine Sulfate (Morphine) 2 mg IV Q3H PRN PRN Reason: Pain, Moderate (4-6) Last Admin: 10/01/19 02:10 Dose: 2 mg Documented by: Ondansetron HCl (Zofran) 4 mg IV Q6H PRN PRN Reason: Nausea And Vomiting Last Admin: 10/01/19 02:10 Dose: 4 mg Documented by: Pantoprazole Sodium (Protonix) 40 mg IV BID LILLY Last Admin: 10/01/19 02:10 Dose: 40 mg Documented by: Review of Systems - Review of Systems All systems: negative (10 Systems reviewed and negative except as mentioned above in the history of present illness) Exam - Constitutional Vital Signs: Temp Pulse Resp BP Pulse Ox 98.4 F 87 19 119/84 100 10/01/19 07:11 10/01/19 07:11 10/01/19 07:11 10/01/19 07:11 10/01/19 07:11 General appearance: no acute distress - EENT Eyes: EOM intact ENT: hearing intact - Neck Neck: supple - Respiratory Respiratory effort: normal - Cardiovascular Rhythm: regular - Gastrointestinal General gastrointestinal: Present: soft, tender, normal bowel sounds - Integumentary Integumentary: Present: dry - Neurologic Neurological: alert and oriented x3 - Psychiatric Psychiatric: appropriate mood/affect - Labs CBC & Chem 7: 09/30/19 20:15 09/30/19 20:15 Lab Results: Laboratory Results - last 24 hr 09/30/19 09/30/19 09/30/19 20:15 20:15 Unknown WBC 10.7 RBC 4.44 Hgb 11.5 L Hct 34.9 L MCV 79 L MCH 26 L MCHC 33 RDW 15.7 H Plt Count 542 H Lymph % (Auto) 22.9 [place] % (Auto) 9.9 H Eos % (Auto) 1.6 Baso % (Auto) 0.7 Lymph # 2.4 [place] # 1.1 H Eos # 0.2 Baso # 0.1 Seg Neutrophils % 64.9 Seg Neutrophils # 7.0 Sodium 140 Potassium 4.1 Chloride 100.8 Carbon Dioxide 26 Anion Gap 17 BUN 8 L Creatinine 1.2 Estimated GFR > 60 BUN/Creatinine Ratio 7 Glucose 94 Calcium 9.5 Total Bilirubin 0.30 AST 14 ALT 12 Alkaline Phosphatase 65 Total Protein 7.2 Albumin 4.1 Albumin/Globulin Ratio 1.3 Lipase 22 Urine Color Yellow Urine Turbidity Cloudy Urine pH 7.0 Ur Specific [place] 1.021 Urine Protein <15 mg/dl Urine Glucose (UA) Neg Urine Ketones Neg Urine Blood Neg Urine Nitrite Neg Urine Bilirubin Neg Urine Urobilinogen < 2.0 Ur Leukocyte Esterase Neg Urine WBC (Auto) 1.0 Urine RBC (Auto) 3.0 Amorphous Crystals Few Urine Mucus 3+ Assessment and Plan Presentation and imaging concerning for severe peptic ulcer disease Plan on EGD, maintain n.p.o. status Rest of differential diagnosis beyond peptic ulcer disease includes mass, malignancy, infection, etc. - Patient Problems (1) Abdominal pain in male Current Visit: Yes Status: Acute (2) Gastric outlet obstruction Current Visit: Yes Status: Acute (3) Nausea, vomiting and diarrhea Current Visit: Yes Status: Acute (4) Peptic ulcer disease Current Visit: Yes Status: Acute
--- NOTE | 2019-10-01 10:40 | Consultation ---
History of Present Illness Consult date: 10/01/19 Reason for consult: abdominal pain Requesting physician: PORFIRIO MARIE Chief complaint: N/V - History of present illness History of present illness: 34yo M who presents with abdominal pain, nausea, and vomiting. ER evaluation revealed signs of gastric outlet obstruction and possible changes consistent with a gastric/pyloric ulcer. General surgery was asked to consult. Patient reports that he is doing well at this time. He has minimal symptoms. Nausea is controlled with medications. He reports that for at least a few months, he has had issues with early satiety, nausea, vomiting, weight loss. He believes he has some heartburn issues. He has tried Pepto-Bismol in the past. He does not take anything on a regular basis. Denies any family history of any malignancy. He reports that all of these problems began after his emergency surgery for a ruptured appendix in [address] Cano. Past History Past Medical History: GERD Past Surgical History: appendectomy (ruptured - had ex lap - 2017) Social history: no significant social history. denies: smoking, alcohol abuse Family history: no significant family history Medications and Allergies Allergies Allergy/AdvReac Type Severity Reaction Status Date / Time No Known Allergies Allergy Unverified 10/11/16 21:20 Home Medications Medication Instructions Recorded Confirmed Last Taken Type Ondansetron [Zofran Odt] 4 mg PO Q8HR PRN #10 tab.rapdis 06/23/19 10/01/19 Unknown Rx Pantoprazole [Protonix] 40 mg PO QDAY #30 tablet 06/23/19 10/01/19 Unknown Rx Active Meds: Active Medications Morphine Sulfate (Morphine) 2 mg IV Q3H PRN PRN Reason: Pain, Moderate (4-6) Last Admin: 10/01/19 08:20 Dose: 2 mg Documented by: Ondansetron HCl (Zofran) 4 mg IV Q6H PRN PRN Reason: Nausea And Vomiting Last Admin: 10/01/19 08:20 Dose: 4 mg Documented by: Pantoprazole Sodium (Protonix) 40 mg IV BID LILLY Last Admin: 10/01/19 09:25 Dose: Not Given Documented by: Review of Systems - Constitutional weight loss, chronic pain, no fever, no chills - Cardiovascular no chest pain, no shortness of breath - Respiratory no cough - Gastrointestinal abdominal pain, nausea, vomiting, heartburn, indigestion, early satiety - Genitourinary no flank pain - Muskuloskeletal no low back pain - Integumentary no rash, no sores, no wounds Exam Vital Signs Temp Pulse Resp BP Pulse Ox 98.9 F 79 20 110/80 99 09/30/19 18:56 09/30/19 18:56 09/30/19 18:56 09/30/19 18:56 09/30/19 18:56 - General physical appearance Positive: well developed, well nourished, no distress, no pain, other (pleasant) - Eyes Positive: normal occular movement. Negative: icteric - Respiratory Positive: normal expansion, normal respiratory effort, clear to auscultation - Cardiovascular Rhythm: regular - Abdomen Abdomen: Present: soft, tender (very minimal in epigastric area), surgical scars (well healed midline scar). Absent: distended, masses, guarding, rigid - Integumentary no rash, no growths, no abnormal pigmentation - Neurologic Neurologic: alert and oriented to time, place and person, motor strength and sensation are grossly intact - Psychiatric Psychiatric: appropriate mood/affect, intact judgment & insight, cooperative Results - Labs 09/30/19 20:15 09/30/19 20:15 Abnormal lab results 09/30/19 09/30/19 Range/Units 20:15 20:15 Hgb 11.5 L (11.8-15.2) gm/dl Hct 34.9 L (35.5-45.6) % MCV 79 L (84-94) fl MCH 26 L (28-32) pg RDW 15.7 H (13.2-15.2) % Plt Count 542 H (140-440) K/mm3 Emanuel % (Auto) 9.9 H (0.0-7.3) % Emanuel # 1.1 H (0.0-0.8) K/mm3 BUN 8 L (9-20) mg/dL Diabetes panel 09/30/19 Range/Units 20:15 Sodium 140 (137-145) mmol/L Potassium 4.1 (3.6-5.0) mmol/L Chloride 100.8 (98-107) mmol/L Carbon Dioxide 26 (22-30) mmol/L BUN 8 L (9-20) mg/dL Creatinine 1.2 (0.8-1.5) mg/dL Glucose 94 (75-100) mg/dL Calcium 9.5 (8.4-10.2) mg/dL AST 14 (5-40) units/L ALT 12 (7-56) units/L Alkaline Phosphatase 65 (35-129) units/L Total Protein 7.2 (6.3-8.2) g/dL Albumin 4.1 (3.9-5) g/dL Calcium panel 09/30/19 Range/Units 20:15 Calcium 9.5 (8.4-10.2) mg/dL Albumin 4.1 (3.9-5) g/dL Pituitary panel 09/30/19 Range/Units 20:15 Sodium 140 (137-145) mmol/L Potassium 4.1 (3.6-5.0) mmol/L Chloride 100.8 (98-107) mmol/L Carbon Dioxide 26 (22-30) mmol/L BUN 8 L (9-20) mg/dL Creatinine 1.2 (0.8-1.5) mg/dL Glucose 94 (75-100) mg/dL Calcium 9.5 (8.4-10.2) mg/dL Adrenal panel 09/30/19 Range/Units 20:15 Sodium 140 (137-145) mmol/L Potassium 4.1 (3.6-5.0) mmol/L Chloride 100.8 (98-107) mmol/L Carbon Dioxide 26 (22-30) mmol/L BUN 8 L (9-20) mg/dL Creatinine 1.2 (0.8-1.5) mg/dL Glucose 94 (75-100) mg/dL Calcium 9.5 (8.4-10.2) mg/dL Total Bilirubin 0.30 (0.1-1.2) mg/dL AST 14 (5-40) units/L ALT 12 (7-56) units/L Alkaline Phosphatase 65 (35-129) units/L Total Protein 7.2 (6.3-8.2) g/dL Albumin 4.1 (3.9-5) g/dL - Imaging CT scan - abdomen: report reviewed, image reviewed CT scan - pelvis: report reviewed, image reviewed Assessment and Plan - Patient Problems (1) Gastric outlet obstruction Current Visit: Yes Status: Acute Plan to address problem: Pt stable. This situation is most likely due to complications from peptic ulcer disease. He does not have any immediate need for surgery. Would recommend conservative therapy first by gastroenterology. If he continues to have issues once they have exhausted all of their treatments, then we will be available to discuss surgical options. Please call with any questions. Time=30min (2) Peptic ulcer disease Current Visit: Yes Status: Acute
[2019-10-01] MEDS ORDERED: LIDOCAINE MPF (2%) 20 MG/1 ML VIAL 5 ML ONE (12:00)
[2019-10-01] MEDS ORDERED: SODIUM CHLORIDE 0.9% 1000 ML 1,000 ML ONE (12:13)
[2019-10-01] MEDS ORDERED: propofoL 200 MG/20 ML VIAL IV ONE (12:55)
[2019-10-01] MEDS ORDERED: WATER FOR IRRIG STERILE 1,000 ML BOTTLE ONE (12:56)
[2019-10-01] MEDS ORDERED: WATER FOR IRRIG STERILE 250 ML BOTTLE IR ONE (12:56)
[2019-10-01] MEDS ORDERED: SODIUM CHLORIDE 0.9% 1000 ML 1,000 ML IV SCH (13:15)
--- NOTE | 2019-10-01 13:57 | Operative Report ---
Operative Report Operative Report: DOS: 10/01/2019 SURGEON: Rafal Kitchen MD EGD WITH BIOPSY REPORT PREOPERATIVE DIAGNOSIS and POSTOPERATIVE DIAGNOSIS: Epigastric abdominal pain, abnormal CT scan ESTIMATED BLOOD LOSS: Minimal DESCRIPTION OF PROCEDURE: A high-resolution EGD scope was passed through the oropharynx, esophagus, stomach, and second portion of duodenum. The scope was carefully withdrawn. Retroflexion was performed in the stomach. At the end of the procedure, the scope was cleaned using normal technique. Vital signs monitored continuously throughout. SEDATION: Provided by Anesthesiology Services. COMPLICATIONS: None. FINDINGS: * There was severe stenosis of the pylorus which was passed with significant difficulty, the pyloric channel appeared significantly edematous and swollen. Additionally there was a suture in the mucosa of the pylorus * Normal second portion of the duodenum * Large clean-based ulcer in the duodenal bulb, difficult to visualize due to the stenosis, approximately 2 cm in diameter, no high risk stigmata seen. Biopsies obtained from the ulcer as well as from the area of pyloric stenosis with cold biopsy forceps. While obtaining biopsies the forceps got caught on the suture and partially resected the edge of the suture. However the pylorus remained intact with no evidence of perforation. * Moderate amount of residual food in the gastric body and fundus, consistent with partial gastric outlet obstruction to the patient's pyloric stenosis * Moderate gastritis in the antrum and body with erythema and edema. Biopsies were taken to rule out H. Pylori infection. A total of 5 biopsies were taken, 2 from the antrum, 1 from the incisura, 2 from the body. * The GE junction located 42 cm from incisors * Moderate LA grade C esophagitis distal 3 cm of the esophagus * Remainder of exam is unremarkable RECOMMENDATIONS: Continue twice daily PPI Follow-up pathology results Patient may be on clear liquid diet, I do not recommend advancing the diet for least another day or 2 to allow for healing of the severe edema which is causing a partial gastric outlet obstruction
--- NOTE | 2019-10-01 14:25 | Anesthesia Consultation ---
Anesthesia Consult and Med Hx Date of service: 10/01/19 - Airway Anesthetic Teeth Evaluation: Good ROM Head & Neck: Adequate Mental/Hyoid Distance: Adequate Mallampati Class: Class II Intubation Access Assessment: Probably Good - Pre-Operative Health Status ASA Pre-Surgery Classification: ASA2 Proposed Anesthetic Plan: MAC - Pulmonary Hx Smoking: Yes (5-6 cig x day) Hx Asthma: No COPD: No Hx Pneumonia: No - Cardiovascular System Hx Hypertension: No - Central Nervous System Hx Seizures: No CVA: No - Gastrointestinal Hx Ulcer: Yes (PUD with perforation (17')) Hx Gastroesophageal Reflux Disease: Yes - Endocrine Hx Renal Disease: No Hx End Stage Renal Disease: No Hx Cirrhosis: No - Hematic Hx Anemia: No - Other Systems Hx Cancer: No
--- NOTE | 2019-10-01 14:26 | Anesthesia Day of Surgery ---
Anesthesia Day of Surgery - Day of Surgery Patient Examined: Yes Patient H&P Reviewed: Yes Patient is NPO: Yes
--- NOTE | 2019-10-01 15:18 | Post Anesthesia Evaluation ---
- Post Anesthesia Evaluation Patient Participated: Yes Airway Patent: Yes Stable Respiratory Function: Yes Nausea/Vomiting: No Temp > 96.8F: Yes Pain Manageable: Yes Adequeate Hydration: Yes Anesthesia Complications: No
[2019-10-02] MEDS: MORPHINE 2 MG/1 ML INJ IV PRN ×6 (01:13→21:47)
[2019-10-02] MEDS: ONDANSETRON 4 MG/2 ML INJ IV PRN ×2 (08:52→15:45)
[2019-10-02] MEDS: PANTOPRAZOLE 40 MG INJ IV SCH ×3 (08:53→21:44)
--- NOTE | 2019-10-02 12:52 | Progress Note ---
Assessment and Plan - Patient Problems (1) Gastric outlet obstruction Current Visit: Yes Status: Acute Plan to address problem: Pt stable. This situation is most likely due to complications from peptic ulcer disease. He does not have any immediate need for surgery. Would recommend conservative therapy first by gastroenterology. Agree with their latest recommmendations. If he continues to have issues once they have exhausted all of their treatments, then we will be available to discuss surgical options. Will be available if needed. Please call with any questions. Time=10min (2) Peptic ulcer disease Current Visit: Yes Status: Acute Subjective Date of service: 10/02/19 Patient Reports: Positive: no new complaints, feels better, tolerating liquids well. Negative: nausea, vomiting Objective Vital Signs - 12hr 10/02/19 10/02/19 10/02/19 04:23 07:03 11:20 Temperature 97.9 F 97.9 F 98.4 F Pulse Rate 57 L 58 L Respiratory 16 18 16 Rate Blood Pressure 101/57 102/63 106/62 Blood Pressure [Left] O2 Sat by Pulse 99 98 Oximetry 10/02/19 11:40 Temperature 98.4 F Pulse Rate 57 L Respiratory 16 Rate Blood Pressure Blood Pressure 106/62 [Left] O2 Sat by Pulse 100 Oximetry - General physical appearance no distress, no pain, other (looks well) - Eyes normal occular movement - Respiratory normal expansion, normal respiratory effort - Abdomen soft, not tender, not distended - Integumentary no rash, no growths, no abnormal pigmentation - Psychiatric oriented to time, oriented to person, oriented to place, speech is normal, memory intact - Labs 09/30/19 20:15 09/30/19 20:15
--- NOTE | 2019-10-02 15:14 | Progress Note ---
Assessment and Plan - Patient Problems (1) Abdominal pain in male Current Visit: Yes Status: Acute Plan to address problem: Abdominal pain secondary to large duodenal ulcer and pyloric stenosis with gastric obstruction. Pain controlled after EGD. (2) Gastric outlet obstruction Current Visit: Yes Status: Acute Plan to address problem: Gastric outlet obstruction swelling secondary to pyloric stenosis with edema causing partial gastric outlet obstruction. Patient started on PPI. Liquid diet for 1 to 2 days to see if edema can calm down prior to advancing diet. Patient is okay with that. We will reevaluate tomorrow. (3) Peptic ulcer disease Current Visit: Yes Status: Acute Plan to address problem: Peptic ulcer disease Protonix 40 mg twice daily. Avoid NSAIDs. Liquid diet. Plan discharge 1 to 2 days. History Interval history: Patient feels better today. Tolerating clear liquids well. All questions and concerns answered about patient's hospital course pyloric stenosis. Patient still has questions about appendix that was evaluated on last admission. No nausea tolerating food well. Hospitalist Physical - Constitutional Vitals: Temp Pulse Resp BP Pulse Ox 98.4 F 57 L 16 106/62 100 10/02/19 11:40 10/02/19 11:40 10/02/19 11:40 10/02/19 11:40 10/02/19 11:40 General appearance: Present: mild distress - EENT Eyes: Present: PERRL, EOM intact ENT: hearing intact, clear oral mucosa, dentition normal - Neck Neck: Present: supple, normal ROM - Respiratory Respiratory effort: normal Respiratory: bilateral: CTA - Cardiovascular Rhythm: regular - Extremities Extremities: no ischemia, pulses intact, pulses symmetrical Peripheral Pulses: within normal limits - Abdominal General gastrointestinal: soft, non-tender, non-distended, no hepatomegaly, no splenomegaly - Integumentary Integumentary: Present: clear, warm, dry - Psychiatric Psychiatric: appropriate mood/affect, intact judgment & insight, cooperative - Neurologic Neurologic: moves all extremities Results - Labs CBC & Chem 7: 09/30/19 20:15 09/30/19 20:15 Labs: Laboratory Last Values WBC 10.7 K/mm3 (4.5-11.0) 09/30/19 20:15 RBC 4.44 M/mm3 (3.65-5.03) 09/30/19 20:15 Hgb 11.5 gm/dl (11.8-15.2) L 09/30/19 20:15 Hct 34.9 % (35.5-45.6) L 09/30/19 20:15 MCV 79 fl (84-94) L 09/30/19 20:15 MCH 26 pg (28-32) L 09/30/19 20:15 MCHC 33 % (32-34) 09/30/19 20:15 RDW 15.7 % (13.2-15.2) H 09/30/19 20:15 Plt Count 542 K/mm3 (140-440) H 09/30/19 20:15 Lymph % (Auto) 22.9 % (13.4-35.0) 09/30/19 20:15 Cowley % (Auto) 9.9 % (0.0-7.3) H 09/30/19 20:15 Eos % (Auto) 1.6 % (0.0-4.3) 09/30/19 20:15 Baso % (Auto) 0.7 % (0.0-1.8) 09/30/19 20:15 Lymph # 2.4 K/mm3 (1.2-5.4) 09/30/19 20:15 Cowley # 1.1 K/mm3 (0.0-0.8) H 09/30/19 20:15 Eos # 0.2 K/mm3 (0.0-0.4) 09/30/19 20:15 Baso # 0.1 K/mm3 (0.0-0.1) 09/30/19 20:15 Seg Neutrophils % 64.9 % (40.0-70.0) 09/30/19 20:15 Seg Neutrophils # 7.0 K/mm3 (1.8-7.7) 09/30/19 20:15 Sodium 140 mmol/L (137-145) 09/30/19 20:15 Potassium 4.1 mmol/L (3.6-5.0) 09/30/19 20:15 Chloride 100.8 mmol/L (98-107) 09/30/19 20:15 Carbon Dioxide 26 mmol/L (22-30) 09/30/19 20:15 Anion Gap 17 mmol/L 09/30/19 20:15 BUN 8 mg/dL (9-20) L 06/04/20 20:15 Creatinine 1.2 mg/dL (0.8-1.5) 09/30/19 20:15 Estimated GFR > 60 ml/min 09/30/19 20:15 BUN/Creatinine Ratio 7 % 09/30/19 20:15 Glucose 94 mg/dL (75-100) 09/30/19 20:15 Calcium 9.5 mg/dL (8.4-10.2) 09/30/19 20:15 Total Bilirubin 0.30 mg/dL (0.1-1.2) 09/30/19 20:15 AST 14 units/L (5-40) 09/30/19 20:15 ALT 12 units/L (7-56) 09/30/19 20:15 Alkaline Phosphatase 65 units/L (35-129) 09/30/19 20:15 Total Protein 7.2 g/dL (6.3-8.2) 09/30/19 20:15 Albumin 4.1 g/dL (3.9-5) 09/30/19 20:15 Albumin/Globulin Ratio 1.3 % 09/30/19 20:15 Lipase 22 units/L (13-60) 09/30/19 20:15 Urine Color Yellow (Yellow) 09/30/19 Unknown Urine Turbidity Cloudy (Clear) 09/30/19 Unknown Urine pH 7.0 (5.0-7.0) 09/30/19 Unknown Ur Specific [place] 1.021 (1.003-1.030) 09/30/19 Unknown Urine Protein <15 mg/dl mg/dL (Negative) 09/30/19 Unknown Urine Glucose (UA) Neg mg/dL (Negative) 09/30/19 Unknown Urine Ketones Neg mg/dL (Negative) 09/30/19 Unknown Urine Blood Neg (Negative) 09/30/19 Unknown Urine Nitrite Neg (Negative) 09/30/19 Unknown Urine Bilirubin Neg (Negative) 09/30/19 Unknown Urine Urobilinogen < 2.0 mg/dL (<2.0) 09/30/19 Unknown Ur Leukocyte Esterase Neg (Negative) 09/30/19 Unknown Urine WBC (Auto) 1.0 /HPF (0.0-6.0) 09/30/19 Unknown Urine RBC (Auto) 3.0 /HPF (0.0-6.0) 09/30/19 Unknown Amorphous Crystals Few 09/30/19 Unknown Urine Mucus 3+ /HPF 09/30/19 Unknown Cohen/IV: Voiding Method Toilet IV Catheter Type [Left Peripheral IV Antecubital] Active Medications - Current Medications Current Medications: Generic Name Dose Route Start Last Admin Trade Name Freq PRN Reason Stop Dose Admin Sodium Chloride 1,000 mls @ 50 mls/hr 10/01/19 13:15 Nacl 0.9% 1000 Ml IV DIRECT LILLY Morphine Sulfate 2 mg 10/01/19 01:41 10/02/19 12:46 Morphine IV 2 mg Q3H PRN Administration Pain, Moderate (4-6) Ondansetron HCl 4 mg 10/01/19 01:41 10/02/19 08:52 Zofran IV 4 mg Q6H PRN Administration Nausea And Vomiting Pantoprazole Sodium 40 mg 10/01/19 02:00 10/02/19 08:53 Protonix IV 40 mg BID LILLY Administration
--- NOTE | 2019-10-02 15:35 | Gastroenterology Progress Note ---
Assessment and Plan 1. Gastric outlet obstruction (partial) 2/2 PUD - tolerating clears without n/v or pain. cont on clears upon discharge. will need repeat EGD in 6-8 weeks for possible dilatation of GOO. f/u in GI clinic this week to discuss advancing of diet based on symptoms -okay to d/c tomorrow from gi stand point if remains well on clears. cont on PPI BID dosing, avoid nsaid medications, and start carafate QID. f/u path from endoscopy performed yesterday Subjective Date of service: 10/02/19 Principal diagnosis: GOO Interval history: pt tolerating clears without n/v/abd pain or distention. + flatus and no new gi symptoms at this time Objective - Constitutional Vitals: Temp Pulse Resp BP Pulse Ox 98.4 F 57 L 16 106/62 100 10/02/19 11:40 10/02/19 11:40 10/02/19 11:40 10/02/19 11:40 10/02/19 11:40 General appearance: no acute distress - Respiratory Respiratory effort: normal Respiratory: bilateral: CTA - Cardiovascular Rhythm: regular Heart Sounds: Present: S1 & S2 - Gastrointestinal General gastrointestinal: Present: soft, non-tender, non-distended - Neurologic Neurological: alert and oriented x3 - Labs CBC & Chem 7: 09/30/19 20:15 09/30/19 20:15
[2019-10-03] MEDS: MORPHINE 2 MG/1 ML INJ IV PRN ×4 (00:57→15:32)
--- NOTE | 2019-10-03 08:10 | Discharge Summary ---
Providers - Providers Date of Admission: 10/01/19 02:08 Date of discharge: 10/03/19 Attending physician: MANOJ WHITE 10/01/19 00:51 Consult to Physician [CONS] Stat Comment: Consulting Provider: NURIA NAVARRO Physician Instructions: Admit to Hospitalist for observation Reason For Exam: abdominal pain; Gastric outlet obstruction; PUD 10/01/19 00:52 Consult to Physician [CONS] Stat Comment: Consulting Provider: PORFIRIO GUTIERREZ Physician Instructions: Reason For Exam: PUD; Abdominal pain Primary care physician: [employer] Hospitalization Condition: Stable Pertinent studies: EGD which showed pyloric stenosis with significant edema, duodenal ulcer and gastritis. Biopsies obtained. Partial gastric outlet obstruction secondary to pyloric stenosis. Also retained suture Hospital course: Patient admitted with abdominal pain work-up found to have pyloric stenosis with got gastric outlet obstruction. Patient has significant edema. Was also found to have duodenal ulcer. Discharged home with sucralfate 1 g 3 times daily. Protonix 40 mg twice daily clear liquid diet only for 10 days follow-up GI in 7 days [facility]. Patient stable tolerating clears well no abdominal pain. Disposition: DC- TO HOME OR SELFCARE - Discharge Diagnoses (1) Abdominal pain in male Status: Acute (2) Gastric outlet obstruction Status: Acute (3) Peptic ulcer disease Status: Acute Core Measure Documentation - Palliative Care Palliative Care/ Comfort Measures: Not Applicable - Core Measures Any of the following diagnoses?: none Exam - Constitutional Vitals: Temp Pulse Resp BP Pulse Ox 98.0 F 59 L 17 95/56 97 10/03/19 04:43 10/03/19 04:43 10/03/19 04:43 10/03/19 04:43 10/03/19 04:43 General appearance: Present: no acute distress, well-nourished - EENT Eyes: Present: PERRL ENT: hearing intact, clear oral mucosa - Neck Neck: Present: supple, normal ROM - Respiratory Respiratory effort: normal Respiratory: bilateral: CTA - Cardiovascular Heart Sounds: Present: S1 & S2. Absent: rub, click - Extremities Extremities: pulses symmetrical, No edema Peripheral Pulses: within normal limits - Abdominal General gastrointestinal: Present: soft, non-tender, non-distended, normal bowel sounds Male genitourinary: Present: normal - Integumentary Integumentary: Present: clear, warm, dry - Musculoskeletal Musculoskeletal: gait normal, strength equal bilaterally - Psychiatric Psychiatric: appropriate mood/affect, intact judgment & insight - Neurologic Neurologic: CNII-XII intact, moves all extremities Plan Activity: no restrictions, other Weight Bearing Status: Full Weight Bearing Diet: other (Clear liquid diet for 10 days.) Follow up with: PRIMARY CARE, [Primary Care Provider] - 3-5 Days Prescriptions: Sucralfate [Carafate] 1 gm PO Q6HR #90 tablet Pantoprazole [Protonix TAB] 40 mg PO BID #60 tablet
[2019-10-03] MEDS: ONDANSETRON 4 MG/2 ML INJ IV PRN (08:39)
[2019-10-03] MEDS ORDERED: PANTOPRAZOLE 40 MG TAB PO SCH (10:00)
--- NOTE | 2019-10-03 15:15 | Gastroenterology Progress Note ---
Assessment and Plan 1. Gastric outlet obstruction (partial) 2/2 PUD - tolerating clears without n/v or pain. okay to d/c from gi stand point on liquid diet. will need repeat EGD in 6-8 weeks for possible dilatation of GOO. f/u in GI clinic this week to dis cuss advancing of diet based on symptoms and f/u path. cont ppi bid, carafate and avoid nsaid's. will sign off, please call as needed. Subjective Date of service: 10/03/19 Principal diagnosis: GOO Interval history: pt tolerating clears without n/v/abd pain. no new gi complaints at this time. Objective - Constitutional Vitals: Temp Pulse Resp BP Pulse Ox 97.9 F 59 L 19 106/67 97 10/03/19 08:00 10/03/19 08:00 10/03/19 08:00 10/03/19 08:00 10/03/19 08:00 General appearance: no acute distress - Respiratory Respiratory effort: normal Respiratory: bilateral: CTA - Cardiovascular Rhythm: regular Heart Sounds: Present: S1 & S2 - Gastrointestinal General gastrointestinal: Present: soft, non-tender, non-distended - Labs CBC & Chem 7: 09/30/19 20:15 09/30/19 20:15
[2019-10-03] MEDS ORDERED: SUCRALFATE 1 GM TAB PO SCH (18:00)
[2019-10-03 21:10] VITALS: BP 102/63
== END 2019-10-03 17:30 | disposition home or self-care (01) | DRG 382 ==
LOC: ED 18:24 → 3B-SURG 10-01 02:08
PROVIDERS: ADMIT Internal Medicine; ATTEND Internal Medicine
PROC: 0DB78ZX Excision of Stomach, Pylorus, Via Natural or Artificial Opening Endoscopic, Diagnostic (ICD-10-PCS; principal; 2019-10-01)
PROC: 0DB68ZX Excision of Stomach, Via Natural or Artificial Opening Endoscopic, Diagnostic (ICD-10-PCS; 2019-10-01)
DX: K31.1 Adult hypertrophic pyloric stenosis (principal); K29.70 Gastritis, unspecified, without bleeding; K20.9 Esophagitis, unspecified; K21.9 Gastro-esophageal reflux disease without esophagitis; K26.9 Duodenal ulcer, unspecified as acute or chronic, without hemorrhage or perforation; Z90.49 Acquired absence of other specified parts of digestive tract; Z79.899 Other long term (current) drug therapy
CPT/HCPCS: 36415; 74177; 80053; 81001; 83690; 85025; 88305; 88342; G0378; C9113; J0500; J2270; J2405; J2704; J7030; Q9967

== ENCOUNTER 2019-11-15 10:56 | Emergency (ER) | payer SELFPAY ==
--- NOTE | 2019-11-15 13:24 | Emergency Department Report ---
Blank Doc - Documentation Documentation: 34-year-old male that presents with abdominal pain and n/v. This initial assessment/diagnostic orders/clinical plan/treatment(s) is/are subject to change based on patient's health status, clinical progression and re- assessment by fellow clinical providers in the ED. Further treatment and workup at subsequent clinical providers discretion. Patient/guardians urged not to elope from the ED as their condition may be serious if not clinically assessed and managed. Initial orders include: 1- Patient sent to [facility] for further evaluation and treatment 2- labs 3- UA
[2019-11-15 14:43] LABS: Basophils # (Auto) 0.1 K/mm3 (0.0-0.1); Basophils % (Auto) 0.7 % (0.0-1.8); Eosinophils # (Auto) 0.1 K/mm3 (0.0-0.4); Eosinophils % (Auto) 0.7 % (0.0-4.3); Hematocrit 45.9 % (35.5-45.6); Hemoglobin 14.4 gm/dl (11.8-15.2); Lymphocytes # (Auto) 2.4 K/mm3 (1.2-5.4); Lymphocytes % (Auto) 19.4 % (13.4-35.0); Mean Corpuscular HGB Conc 31 % (32-34); Mean Corpuscular Volume 78 fl (84-94); Monocytes # (Auto) 1.2 K/mm3 (0.0-0.8); Monocytes % (Auto) 9.4 % (0.0-7.3); Platelet Count 419 K/mm3 (140-440); Red Cell Distribution Width 18.6 % (13.2-15.2)
[2019-11-15 15:07] LABS: Alanine Aminotransferase 18 units/L (7-56); Albumin 4.9 g/dL (3.9-5); BUN/Creatinine Ratio 11; Blood Urea Nitrogen 12 mg/dL (9-20); Calcium 10.1 mg/dL (8.4-10.2); Hemolysis Index 10
[2019-11-15] MEDS ORDERED: LIDOCAINE VISCOUS 2% 15 ML ORAL LIQD PO ONE (18:02)
[2019-11-15] MEDS ORDERED: ONDANSETRON 4 MG ODT TAB PO ONE (18:02)
[2019-11-15] MEDS ORDERED: ALUM-MAG HYDROXIDE-SIMETHICONE 200-200-20MG/5ML ORAL LIQD 30 ML PO ONE (18:02)
--- NOTE | 2019-11-15 18:07 | Emergency Department Report ---
ED Abdominal Pain HPI - General Chief Complaint: Abdominal Pain Stated Complaint: V/ABD PAIN Time Seen by Provider: 11/15/19 13:23 Source: patient Mode of arrival: Ambulatory Limitations: No Limitations - History of Present Illness Initial Comments: 34-year-old male with history of peptic ulcer disease presents to ED with abdominal pain since yesterday. Patient reports diffuse abdominal pain with associated nausea and vomiting. He denies any fever or diarrhea. Patient reports constipation. Patient states he was seen and admitted last month for s rupal. Was discharged with medication but states that they are not working anymore. Patient has not followed up with GI since his hospital stay. MD Complaint: abdominal pain -: Last night Location: diffuse Radiation: none Migration to: no migration Severity: moderate Quality: cramping, aching Consistency: constant Improves With: nothing Worsens With: nothing Associated Symptoms: nausea, vomiting, constipation. denies: diarrhea, fever - Related Data Previous Rx's Medication Instructions Recorded Last Taken Type Ondansetron [Zofran ODT TAB] 4 mg PO Q8HR PRN #10 tab.rapdis 06/23/19 Unknown Rx Pantoprazole [Protonix TAB] 40 mg PO BID #60 tablet 10/03/19 Unknown Rx Sucralfate [Carafate] 1 gm PO Q6HR #90 tablet 10/03/19 Unknown Rx Dicyclomine [Bentyl] 20 mg PO QID PRN #20 tablet 11/15/19 Unknown Rx Ondansetron [Zofran Odt] 4 mg PO Q8HR PRN #20 tab.rapdis 11/15/19 Unknown Rx Allergies Allergy/AdvReac Type Severity Reaction Status Date / Time No Known Allergies Allergy Unverified 10/11/16 21:20 ED Review of Systems ROS: Stated complaint: V/ABD PAIN Other details as noted in HPI Comment: All other systems reviewed and negative Constitutional: denies: chills, fever Gastrointestinal: abdominal pain, nausea, vomiting. denies: diarrhea ED Past Medical Hx - Past Medical History Previous Medical History?: Yes Hx Hypertension: No Hx Congestive Heart Failure: No Hx Diabetes: No Hx GERD: Yes Hx Renal Disease: No Hx Seizures: No Hx Asthma: No Hx COPD: No - Surgical History Past Surgical History?: Yes Hx Appendectomy: Yes - Social History Smoking Status: Former Smoker - Medications Home Medications: Home Medications Medication Instructions Recorded Confirmed Last Taken Type Ondansetron [Zofran ODT TAB] 4 mg PO Q8HR PRN #10 tab.rapdis 06/23/19 10/01/19 Unknown Rx Pantoprazole [Protonix TAB] 40 mg PO BID #60 tablet 10/03/19 Unknown Rx Sucralfate [Carafate] 1 gm PO Q6HR #90 tablet 10/03/19 Unknown Rx Dicyclomine [Bentyl] 20 mg PO QID PRN #20 tablet 11/15/19 Unknown Rx Ondansetron [Zofran Odt] 4 mg PO Q8HR PRN #20 tab.rapdis 11/15/19 Unknown Rx ED Physical Exam - General Limitations: No Limitations General appearance: alert, in no apparent distress - Head Head exam: Present: atraumatic, normocephalic - Eye Eye exam: Present: normal appearance, EOMI - ENT ENT exam: Present: mucous membranes moist - Neck Neck exam: Present: normal inspection - Respiratory Respiratory exam: Present: normal lung sounds bilaterally. Absent: respiratory distress - Cardiovascular Cardiovascular Exam: Present: regular rate, normal rhythm - GI/Abdominal GI/Abdominal exam: Present: soft, tenderness (Mild, diffuse). Absent: distended - Extremities Exam Extremities exam: Present: normal inspection - Neurological Exam Neurological exam: Present: alert, oriented X3 - Psychiatric Psychiatric exam: Present: normal affect, normal mood - Skin Skin exam: Present: warm, dry, intact, normal color ED Course Vital Signs 11/15/19 11/15/19 12:15 18:08 Temperature 98.5 F Pulse Rate 73 68 Respiratory 18 16 Rate Blood Pressure 116/83 Blood Pressure 118/81 [Left] O2 Sat by Pulse 99 99 Oximetry ED Medical Decision Making - Lab Data Result diagrams: 11/15/19 14:30 11/15/19 14:30 - Radiology Data Radiology results: report reviewed, image reviewed - Medical Decision Making 34-year-old male with history of peptic ulcer disease presents to ED with abdominal pain since yesterday. Acute abdominal series is negative, no evidence of obstructive pattern or free air. Labs are unremarkable. Vital signs are stable. Pain improved. Pain improved following GI cocktail. Patient advised to follow-up with GI. Will discharge at this time. Return precautions given. - Differential Diagnosis Ruptured viscus, bowel obstruction, gastritis Critical care attestation.: If time is entered above; I have spent that time in minutes in the direct care of this critically ill patient, excluding procedure time. ED Disposition Clinical Impression: Abdominal pain Disposition: DC-01 TO HOME OR SELFCARE Is pt being admited?: No Condition: Stable Instructions: Abdominal Pain (ED) Prescriptions: Dicyclomine [Bentyl] 20 mg PO QID PRN #20 tablet PRN Reason: abdominal pain Ondansetron [Zofran Odt] 4 mg PO Q8HR PRN #20 tab.rapdis PRN Reason: Vomiting Referrals: PRIMARY CARE,MD [Primary Care Provider] - 3-5 Days [facility] [Provider Group] - 3-5 Days Time of Disposition: 18:49
[2019-11-15 18:10] VITALS: BP 118/81
--- NOTE | 2019-11-15 18:36 | XRay Report ---
ABDOMEN 4 VIEW(S) INDICATION: Unspecified abdominal pain. COMPARISON: CT abdomen and pelvis with contrast from 09/30/2019. Acute abdominal series from 06/23/2019. FINDINGS: Bowel gas pattern: No significant abnormality. Free air: None seen. Stones: None seen. Chest: No acute findings. Additional Findings: No additional significant findings. IMPRESSION: 1. No acute findings. Signer Name: Catalino Sarabia MD Signed: 11/15/2019 6:32 PM Workstation Name: [id number]
== END 2019-11-15 18:54 | disposition home or self-care (01) ==
LOC: ED 10:56
DX: R10.84 Generalized abdominal pain (principal); R11.2 Nausea with vomiting, unspecified; K21.9 Gastro-esophageal reflux disease without esophagitis; Z90.49 Acquired absence of other specified parts of digestive tract; Z87.891 Personal history of nicotine dependence; Z79.899 Other long term (current) drug therapy
CPT/HCPCS: 36415; 74022; 80053; 83690; 85025; Q0162

== ENCOUNTER 2020-04-10 18:01 | Emergency (ER) | payer SELFPAY | END 2020-04-11 09:48 | disposition left against medical advice (07) | LOC: ED 18:01 | DX: M54.5 Low back pain (principal); Z53.21 Procedure and treatment not carried out due to patient leaving prior to being seen by health care provider ==